=== PATIENT | male | born 1985 | race Caucasian/White ===

== ENCOUNTER 2018-02-03 05:30 | Emergency (ER) | payer OTHER ==
[~2018-02-03] VITALS: Ht 177.8 cm; Wt 93.0 kg
[2018-02-03 05:30] VITALS: BP 129/87
--- NOTE | 2018-02-03 05:30 | NUR ---
Patient BIBA ACLS accompanied by Stefani BRAR, transferred to bed 6. RN evaluating patient at bedside.
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
[2018-02-03 06:05] VITALS: BP 145/101
--- NOTE | 2018-02-03 06:05 | NUR ---
Patient presented to facility under the influence of Unknown Substance. Patient is currently ambulatory with steady gait, able to walk unassisted. Positive gag reflex. Alert and oriented. Is not driving self for discharge out of facility.Patient discharged with v/s stable. Written and verbal after care instructions given and explained. Patient verbalized understanding. Ambulatory with steady gait. All questions addressed prior to discharge. Advised to follow up with PMD.
== END 2018-02-03 06:05 | disposition home or self-care (01) ==
LOC: MED 05:30
DX: Z00.00 Encounter for general adult medical examination without abnormal findings (principal); R03.0 Elevated blood-pressure reading, without diagnosis of hypertension
CPT/HCPCS: 99283